=== PATIENT | female | born 1950 | race Caucasian/White ===

== ENCOUNTER 2017-04-16 17:48 | Emergency (ER) | payer MEDICARE ==
[~2017-04-16] VITALS: Ht 154.9 cm; Wt 61.2 kg
[2017-04-16] MEDS ORDERED: IBUP800 PO (18:58)
[2017-04-16] MEDS ORDERED: Norco 5-325 Ta1 EACH PO (18:58)
== END 2017-04-16 19:30 | disposition home or self-care (01) ==
LOC: ER 17:48
DX: S22.42XA Multiple fractures of ribs, left side, initial encounter for closed fracture (principal); W18.2XXA Fall in (into) shower or empty bathtub, initial encounter
CPT/HCPCS: 71101; 99283

== ENCOUNTER 2018-09-24 06:57 | Day surgery (SDC) | payer MEDICARE ==
[~2018-09-24] VITALS: Ht 157.5 cm; Wt 59.9 kg
[~2018-09-24 06:57] MED LIST: IBUP800 PO; Norco 5-325 Ta1 EACH PO
[2018-09-24] MEDS ORDERED: ATOR10 PO (07:37)
[2018-09-24] MEDS ORDERED: LISI5 PO (07:37)
[2018-09-24 07:41] LABS: BASOPHILS ABSOLUTE AUTO 0.03 K/mm3 (0.00-0.23); BASOPHILS PERCENT AUTO 1 % (0-2); Hematocrit 48.6 % (33.0-51.0); Hemoglobin 16.6 g/dL (11.5-16.0); LYMPHOCYTES ABSOLUTE AUTO 0.89 K/mm3 (0.84-5.20); LYMPHOCYTES PERCENT AUTO 29 % (21-46); MONOCYTES ABSOLUTE AUTO 0.61 K/mm3 (0.16-1.47); MONOCYTES PERCENT AUTO 20 % (4-13); Mean Corpuscular HGB 30.9 pg (26.0-34.0); Mean Corpuscular HGB Conc 34.2 g/dL (31.5-36.5); Mean Corpuscular Volume 91 fL (80-100); Mean Platelet Volume 9.9 fL (9.1-12.4); Platelet Count 302 K/mm3 (150-400); RDW Coefficient Variation 12.5 % (11.7-14.2); RDW Standard Deviation 41.3 fL (35.1-46.3); Red Blood Cell Count 5.37 M/mm3 (3.80-5.20); White Blood Cell Count 3.11 K/mm3 (4.00-11.30)
[2018-09-24 07:42] LABS: EOSINOPHILS ABSOLUTE AUTO 0.01 K/mm3 (0.00-0.68); EOSINOPHILS PERCENT AUTO 0 % (0-6); IMMATURE GRAN ABSOLUTE AUTO 0.01 K/mm3 (0.00-0.10); IMMATURE GRAN PERCENT AUTO 0 % (0-1); NEUTROPHILS ABSOLUTE AUTO 1.56 K/mm3 (1.96-9.15); NEUTROPHILS PERCENT AUTO 50 % (41-73)
[2018-09-24 07:58] LABS: Alanine Aminotransfer (ALT/SGP 33 U/L (12-78); Albumin, Blood 3.5 g/dL (3.4-5.0); Alk Phos 96 U/L (50-136); Anion Gap 10 mmol/L (6-16); Aspartate Aminotrans (AST/SGOT 21 U/L (12-37); Bilirubin, Total 0.9 mg/dL (0.1-1.0); Blood Urea Nitrogen 26 mg/dL (8-24); Bun/Creatinine Ratio 41.9 (12.0-20.0); CO2, Blood 24 mmol/L (21-32); Calcium, Blood 9.3 mg/dL (8.5-10.1); Chloride, Blood 105 mmol/L (98-108); Creatinine, Blood 0.62 mg/dL (0.40-1.00); Globulin, Blood 3.6 g/dL (2.2-4.0); Glomerular Filtration Rate >60 (60-); Glucose, Blood 178 mg/dL (70-99); Potassium, Blood 3.9 mmol/L (3.5-5.5); Sodium, Blood 139 mmol/L (136-145); Total Protein, Blood 7.1 g/dL (6.4-8.2)
--- NOTE | 2018-09-24 09:45 | NUR ---
History, Chart, Medications and Allergies reviewed before start of procedure. Lungs clear T/O to Auscultation. Patient confirms NPO status and agrees with scheduled surgery. Pre-Op teaching done. Pt verbalizes understanding.
--- NOTE | 2018-09-24 13:01 | NUR ---
Patient up to Ambulate independently. Gait steady. Discharge instructions reviewed with patient. Patient verbalizes understanding. Copy given to patient to take home. Dressing to procedure site clean, dry, intact with no visible drainage, swelling, erythema or bruising noted. Patient States Post-Procedure ride home has been arranged. Discharged via wheelchair to private car for ride home. ALL BELONINGS RETURNED TO PATIENT/
--- NOTE | 2018-09-27 12:42 | NUR ---
09/27/18 1242 Ewa Barbour VERIFICATIONS: EDIT CHART.
== END 2018-09-24 13:01 | disposition home or self-care (01) ==
LOC: ER 06:57 → SURS 08:59 → ORSCMMR 09:27 → SURS 13:01 → ORSCMMR 13:01
PROVIDERS: Emergency Medicine; Surgery
PROC: 0WUF0JZ Supplement Abdominal Wall with Synthetic Substitute, Open Approach (ICD-10-PCS; principal; 2018-09-24 09:15)
DX: K43.6 Other and unspecified ventral hernia with obstruction, without gangrene (principal); I10 Essential (primary) hypertension; E78.5 Hyperlipidemia, unspecified; Z79.899 Other long term (current) drug therapy
CPT/HCPCS: 36415; 74176; 80053; 83690; 85025; 93005; 93010; 96361; 96374; 96375; 96376; 99285-25; A9270-GY; C1781; J0690; J1100; J1170; J1885; J2250; J2370; J2405; J2704; J2710; J3010; J7030; J7120

== ENCOUNTER 2022-01-10 09:52 | Emergency (ER) | payer MEDICARE ==
[~2022-01-10] VITALS: Ht 157.5 cm; Wt 56.7 kg
[~2022-01-10 09:52] MED LIST changes: +ATOR10 PO; +LISI5 PO
[2022-01-10] MEDS ORDERED: Norco 5-325 Ta1 EACH PO (12:21)
== END 2022-01-10 12:35 | disposition home or self-care (01) ==
LOC: ER 09:52
DX: R07.81 Pleurodynia (principal); W07.XXXA Fall from chair, initial encounter; Z87.891 Personal history of nicotine dependence; Z79.899 Other long term (current) drug therapy
CPT/HCPCS: 71046; A9270